=== PATIENT | male | born 1990 | race Caucasian/White ===

== ENCOUNTER 2016-12-19 09:20 | Emergency (ER) | payer OTHER ==
[~2016-12-19 09:20] MED LIST: AMPICILLIN500 MG PO; ATIVAN0.5 M1 PO; ATIVAN1 MG PO; BACO TOP; BACTROBAN2% TP; BUPROPION100 M1 PO; CARCD240 PO; CLONAZEPAM1 MG PO; COL100 PO; COLACE100 MG PO; DILTIAZEM HCL240 MG PO; DILTIAZEM240 M1 PO; FLUOXETINE20 M2 PO; FOL1 PO; FOLIC ACID1 MG PO; GEMFIBROZIL600 MG PO; GOOD NEIGHBOR100 M2 PO; HIB240 TP; HIBICLENS118 ML TOP; KLO0.5 PO; LAC PO; LOP600 PO; MOTRIN800 MG PO; MULTIVITAMINS1 TAB PO; NIFEDICAL XL30 MG PO; NOR10T PO; NORCO1 TA2 PO; OMEPRAZOLE DR20 M1 PO; PRILOSEC20 MG PO; PROZ20 PO; TRAZODONE50 M1 PO; ZOF4
[2016-12-19 10:10] LABS: BASOPHIL % 0.2 % (0-2); PLATELET COUNT 236 x10^3mcL (130-400); RED CELL DISTRIBUTION WIDTH 13.3 % (11.5-14.5)
[2016-12-19 10:13] LABS: CARBON DIOXIDE 24.9 mmol/L (21-32); CHLORIDE SERUM 105 mmol/L (98-107); CREATININE SERUM 1.1 mg/dL (0.7-1.3); GFR1 > 60 mL/min; GLUCOSE SERUM 104 mg/dL (74-106); POTASSIUM SERUM 3.9 mmol/L (3.5-5.1); SODIUM SERUM 141 mmol/L (136-145)
[2016-12-19 10:17] LABS: ALBUMIN 4.3 g/dL (3.4-5.0); ALKALINE PHOSPHATASE 106 U/L (46-116); ALT/SGPT 51 U/L (16-63); AST/SGOT 40 U/L (15-37); BILIRUBIN TOTAL 0.78 mg/dL (0.20-1.00); LIPASE 989 IU/L (73-393); TOTAL PROTEIN, SERUM 7.9 g/dL (6.4-8.2)
[2016-12-19 11:21] VITALS: BP 140/97
== END 2016-12-19 11:21 | disposition home or self-care (01) ==
LOC: ED 09:20
PROVIDERS: Emergency Medicine
DX: K86.1 Other chronic pancreatitis (principal); F10.20 Alcohol dependence, uncomplicated; R03.0 Elevated blood-pressure reading, without diagnosis of hypertension; Z88.8 Allergy status to other drugs, medicaments and biological substances
CPT/HCPCS: J1885; J2765

== ENCOUNTER 2016-12-20 03:39 | Inpatient (IN) | payer OTHER ==
[~2016-12-20] VITALS: Ht 180.3 cm; Wt 96.2 kg
[2016-12-20 04:46] LABS: BASOPHIL % 0.3 % (0-2); PLATELET COUNT 267 x10^3mcL (130-400); RED CELL DISTRIBUTION WIDTH 13.4 % (11.5-14.5)
[2016-12-20 05:28] LABS: AMPHETAMINE QUAL UR NONE DETECTED (NEG <=1000)
[2016-12-20 05:41] LABS: GLUCOSE SERUM 107 mg/dL (74-106); POTASSIUM SERUM 3.8 mmol/L (3.5-5.1)
[2016-12-20 05:43] LABS: CALCIUM 9.2 mg/dL (8.5-10.1); CARBON DIOXIDE 20.4 mmol/L (21-32); CHLORIDE SERUM 105 mmol/L (98-107); CREATININE SERUM 1.2 mg/dL (0.7-1.3); GFR1 > 60 mL/min; SODIUM SERUM 142 mmol/L (136-145)
[2016-12-20 05:49] LABS: ALBUMIN 4.4 g/dL (3.4-5.0); ALKALINE PHOSPHATASE 104 U/L (46-116); ALT/SGPT 31 U/L (16-63); AST/SGOT 27 U/L (15-37); BILIRUBIN TOTAL 0.89 mg/dL (0.20-1.00); TOTAL PROTEIN, SERUM 8.1 g/dL (6.4-8.2)
[2016-12-20 05:50] LABS: AMYLASE 394 U/L (25-115)
[2016-12-20 05:51] LABS: LIPASE 3549 IU/L (73-393)
[2016-12-20 08:37] LABS: CHOLESTEROL/HDL RATIO 5.2
[2016-12-20 08:41] VITALS: BP 167/105
[2016-12-20 08:42] LABS: FREE T4 0.94 ng/dL (0.76-1.46); FREE THYROXINE INDEX 2.6 ug/dL (1.4-4.5); T4(THYROXINE) 7.3 ug/dL (4.7-13.3)
[2016-12-20 09:21] LABS: T3 TOTAL 1.05 ng/mL
[2016-12-20 14:00] VITALS: BP 145/101
[2016-12-20 14:21] LABS: microscopic required? YES; urine erythrocyte NEGATIVE (NEGATIVE)
[2016-12-20 16:49] VITALS: BP 133/78
[2016-12-20 21:31] VITALS: BP 148/94
[2016-12-21 05:48] VITALS: BP 125/84
[2016-12-21 08:47] VITALS: BP 142/84
[2016-12-21 09:14] LABS: BASOPHIL % 0.5 % (0-2); PLATELET COUNT 225 x10^3mcL (130-400); RED CELL DISTRIBUTION WIDTH 13.7 % (11.5-14.5)
[2016-12-21 09:29] LABS: CARBON DIOXIDE 22.6 mmol/L (21-32); CHLORIDE SERUM 111 mmol/L (98-107); GFR1 > 60 mL/min; GLUCOSE SERUM 63 mg/dL (74-106); POTASSIUM SERUM 4.3 mmol/L (3.5-5.1); SODIUM SERUM 142 mmol/L (136-145)
[2016-12-21 12:49] VITALS: BP 112/79; BP 135/85
[2016-12-21 16:34] VITALS: BP 151/96
[2016-12-21 21:01] VITALS: BP 132/88
[2016-12-22 05:21] VITALS: BP 134/84
[2016-12-22 06:21] LABS: BASOPHIL % 0.3 % (0-2); PLATELET COUNT 208 x10^3mcL (130-400); RED CELL DISTRIBUTION WIDTH 13.4 % (11.5-14.5)
[2016-12-22 07:02] LABS: CALCIUM 8.6 mg/dL (8.5-10.1); CARBON DIOXIDE 21.1 mmol/L (21-32); CHLORIDE SERUM 107 mmol/L (98-107); GFR1 > 60 mL/min; POTASSIUM SERUM 4.2 mmol/L (3.5-5.1); SODIUM SERUM 141 mmol/L (136-145)
[2016-12-22 07:06] LABS: GLUCOSE SERUM 57 mg/dL (74-106)
[2016-12-22 09:35] VITALS: BP 130/83
[2016-12-22 18:45] VITALS: BP 139/97
[2016-12-22 21:20] VITALS: BP 136/91
[2016-12-23 05:12] VITALS: BP 116/78
[2016-12-23 06:19] LABS: BASOPHIL % 0.8 % (0-2); PLATELET COUNT 216 x10^3mcL (130-400); RED CELL DISTRIBUTION WIDTH 13.3 % (11.5-14.5)
[2016-12-23 06:21] LABS: CALCIUM 8.6 mg/dL (8.5-10.1); CARBON DIOXIDE 25.7 mmol/L (21-32); CHLORIDE SERUM 108 mmol/L (98-107); GFR1 > 60 mL/min; GLUCOSE SERUM 77 mg/dL (74-106); POTASSIUM SERUM 3.7 mmol/L (3.5-5.1); SODIUM SERUM 142 mmol/L (136-145)
[2016-12-23 09:53] VITALS: BP 144/92
[2016-12-23] MEDS ORDERED: ZOF4 PO (10:21)
[2016-12-23] MEDS ORDERED: FENOFIBRATE145 M1 PO (10:21)
[2016-12-23 11:12] VITALS: BP 144/92
[2016-12-23] MEDS ORDERED: MOT600 PO (11:43)
== END 2016-12-23 11:55 | disposition home or self-care (01) | DRG 282 ==
LOC: ED 03:39 → MU 06:50 → DU 06:50 → MU 12-21 05:15
PROVIDERS: Emergency Medicine; Family Medicine; ADMIT Family Medicine
DX: K85.90 Acute pancreatitis without necrosis or infection, unspecified (principal); N17.0 Acute kidney failure with tubular necrosis; F12.10 Cannabis abuse, uncomplicated; J45.909 Unspecified asthma, uncomplicated; F41.8 Other specified anxiety disorders; I10 Essential (primary) hypertension; F43.0 Acute stress reaction; F32.9 Major depressive disorder, single episode, unspecified; E78.00 Pure hypercholesterolemia, unspecified; I25.2 Old myocardial infarction; Z68.29 Body mass index [BMI] 29.0-29.9, adult; Z87.891 Personal history of nicotine dependence; Z88.8 Allergy status to other drugs, medicaments and biological substances
CPT/HCPCS: 80307; 83880; 84439; G0480; J2270; J2405; J3010; J3490; J7030; Q0092

== ENCOUNTER 2017-07-28 04:00 | Emergency (ER) | payer OTHER ==
[~2017-07-28] VITALS: Ht 180.3 cm; Wt 93.9 kg
[~2017-07-28 04:00] MED LIST changes: +FENOFIBRATE145 M1 PO; +MOT600 PO; +ZOF4 PO
[2017-07-28 05:00] VITALS: BP 141/85
== END 2017-07-28 05:00 | disposition home or self-care (01) ==
LOC: ED 04:00
DX: B00.1 Herpesviral vesicular dermatitis (principal); I25.2 Old myocardial infarction; Z88.8 Allergy status to other drugs, medicaments and biological substances

== ENCOUNTER 2017-09-20 21:02 | Emergency (ER) | payer OTHER ==
[~2017-09-20] VITALS: Ht 180.3 cm; Wt 92.5 kg
[2017-09-20 21:05] VITALS: Ht 180.3 cm; Wt 92.5 kg
[2017-09-20 23:22] VITALS: BP 132/75
== END 2017-09-20 23:22 | disposition home or self-care (01) ==
LOC: ED 21:02
DX: S81.812A Laceration without foreign body, left lower leg, initial encounter (principal); L03.116 Cellulitis of left lower limb; X58.XXXA Exposure to other specified factors, initial encounter; Y93.89 Activity, other specified; Y92.89 Other specified places as the place of occurrence of the external cause; Y99.8 Other external cause status
CPT/HCPCS: 90715

== ENCOUNTER 2017-09-24 19:42 | Emergency (ER) | payer OTHER ==
[~2017-09-24] VITALS: Ht 172.7 cm; Wt 93.4 kg
[2017-09-24 19:52] VITALS: Ht 172.7 cm; Wt 93.4 kg
[2017-09-24 21:15] LABS: BASOPHIL % 0.4 % (0-2); PLATELET COUNT 229 x10^3mcL (130-400); RED CELL DISTRIBUTION WIDTH 13.7 % (11.5-14.5)
[2017-09-24 21:20] LABS: CARBON DIOXIDE 27.1 mmol/L (21-32); CHLORIDE SERUM 103 mmol/L (98-107); CREATININE SERUM 1.2 mg/dL (0.7-1.3); GFR1 > 60 mL/min; GLUCOSE SERUM 129 mg/dL (74-106); POTASSIUM SERUM 4.1 mmol/L (3.5-5.1); SODIUM SERUM 137 mmol/L (136-145)
[2017-09-24 21:24] LABS: ALKALINE PHOSPHATASE 92 U/L (46-116); ALT/SGPT 52 U/L (16-63); AST/SGOT 25 U/L (15-37); BILIRUBIN TOTAL 0.17 mg/dL (0.20-1.00); TOTAL PROTEIN, SERUM 7.8 g/dL (6.4-8.2)
[2017-09-24 22:26] VITALS: BP 140/96
== END 2017-09-24 22:26 | disposition home or self-care (01) ==
LOC: ED 19:42
PROVIDERS: Emergency Medicine
DX: R07.9 Chest pain, unspecified (principal); I10 Essential (primary) hypertension; J45.909 Unspecified asthma, uncomplicated; Z88.1 Allergy status to other antibiotic agents
CPT/HCPCS: 36415; 83880; 85378

== ENCOUNTER 2017-10-21 04:23 | Inpatient (IN) | payer OTHER ==
[~2017-10-21] VITALS: Ht 172.7 cm; Wt 93.9 kg
[2017-10-21 04:33] VITALS: Ht 172.7 cm; Wt 93.9 kg
[2017-10-21 05:12] LABS: BASOPHIL % 0.4 % (0-2); PLATELET COUNT 200 x10^3mcL (130-400); RED CELL DISTRIBUTION WIDTH 13.5 % (11.5-14.5)
[2017-10-21 05:20] LABS: CALCIUM 8.8 mg/dL (8.5-10.1); CARBON DIOXIDE 26.9 mmol/L (21-32); CHLORIDE SERUM 102 mmol/L (98-107); CREATININE SERUM 1.2 mg/dL (0.7-1.3); GFR1 > 60 mL/min; GLUCOSE SERUM 92 mg/dL (74-106); POTASSIUM SERUM 4.3 mmol/L (3.5-5.1); SODIUM SERUM 136 mmol/L (136-145)
[2017-10-21 05:24] LABS: ALBUMIN 3.8 g/dL (3.4-5.0); ALKALINE PHOSPHATASE 78 U/L (46-116); ALT/SGPT 52 U/L (16-63); AST/SGOT 36 U/L (15-37); BILIRUBIN TOTAL 0.6 mg/dL (0.20-1.00); LIPASE 170 IU/L (73-393); TOTAL PROTEIN, SERUM 7.2 g/dL (6.4-8.2)
[2017-10-21 10:14] LABS: microscopic required? NO
[2017-10-21 10:31] LABS: urine erythrocyte NEGATIVE (NEGATIVE)
[2017-10-21 10:40] LABS: AMPHETAMINE QUAL UR NONE DETECTED (NEG <=1000)
[2017-10-21 11:36] VITALS: BP 130/93
[2017-10-21 11:52] LABS: MAGNESIUM 2.2 mg/dL (1.8-2.4); PHOSPHOROUS 2.9 mg/dL (2.5-4.9)
[2017-10-21 12:48] LABS: FREE T4 0.93 ng/dL (0.76-1.46); FREE THYROXINE INDEX 2.4 ug/dL (1.4-4.5); T4(THYROXINE) 6.2 ug/dL (4.7-13.3)
[2017-10-21 13:07] LABS: T3 TOTAL 1.1 ng/mL
[2017-10-21 13:52] VITALS: BP 122/80
[2017-10-21] MEDS ORDERED: PRAVASTATIN SOD20 M1 PO (16:44)
[2017-10-21 17:10] LABS: CHOLESTEROL/HDL RATIO 5.4
[2017-10-21 17:22] VITALS: BP 119/79
[2017-10-21 20:40] VITALS: BP 111/62
[2017-10-22 05:24] VITALS: BP 105/63
[2017-10-22 06:05] LABS: BASOPHIL % 0.8 % (0-2); PLATELET COUNT 186 x10^3mcL (130-400); RED CELL DISTRIBUTION WIDTH 13.9 % (11.5-14.5)
[2017-10-22 06:08] LABS: CALCIUM 8.2 mg/dL (8.5-10.1); CARBON DIOXIDE 23.3 mmol/L (21-32); CHLORIDE SERUM 106 mmol/L (98-107); GFR1 > 60 mL/min; GLUCOSE SERUM 72 mg/dL (74-106); POTASSIUM SERUM 4.1 mmol/L (3.5-5.1); SODIUM SERUM 138 mmol/L (136-145)
[2017-10-22 08:51] VITALS: BP 121/81
[2017-10-22 17:23] VITALS: BP 126/82
[2017-10-22 18:43] VITALS: BP 121/78
[2017-10-22 20:21] VITALS: BP 120/74
[2017-10-23 04:58] VITALS: BP 98/59
[2017-10-23 08:26] VITALS: BP 135/78
[2017-10-23 15:40] VITALS: BP 132/83
[2017-10-23 20:26] VITALS: BP 127/88
[2017-10-24 04:55] VITALS: BP 118/69
[2017-10-24 06:23] LABS: CALCIUM 8.8 mg/dL (8.5-10.1); CARBON DIOXIDE 25.5 mmol/L (21-32); CHLORIDE SERUM 106 mmol/L (98-107); CREATININE SERUM 1.1 mg/dL (0.7-1.3); GFR1 > 60 mL/min; GLUCOSE SERUM 75 mg/dL (74-106); POTASSIUM SERUM 4.2 mmol/L (3.5-5.1); SODIUM SERUM 139 mmol/L (136-145)
[2017-10-24] MEDS ORDERED: PRI20 PO (07:45)
[2017-10-24 08:56] VITALS: BP 138/94
[2017-10-24 09:23] VITALS: BP 138/94
== END 2017-10-24 10:24 | disposition home or self-care (01) | DRG 282 ==
LOC: ED 04:23 → DU 09:38 → MU 09:38 → DU 10:28 → MU 10-22 07:52
PROVIDERS: Emergency Medicine; Family Medicine
DX: K85.90 Acute pancreatitis without necrosis or infection, unspecified (principal); I10 Essential (primary) hypertension; F10.288 Alcohol dependence with other alcohol-induced disorder; F15.11 Other stimulant abuse, in remission; K86.1 Other chronic pancreatitis; E78.5 Hyperlipidemia, unspecified; I25.2 Old myocardial infarction; Z87.891 Personal history of nicotine dependence; Z68.31 Body mass index [BMI] 31.0-31.9, adult; Z88.5 Allergy status to narcotic agent; Z91.14 Patient's other noncompliance with medication regimen
CPT/HCPCS: 84439; G0480; J1885; J7030; Q0092; Q0162

== ENCOUNTER 2018-01-08 19:02 | Emergency (ER) | payer OTHER ==
[~2018-01-08] VITALS: Ht 180.3 cm; Wt 89.1 kg
[~2018-01-08 19:02] MED LIST changes: +PRAVASTATIN SOD20 M1 PO; +PRI20 PO
[2018-01-08 19:07] VITALS: Ht 180.3 cm; Wt 89.1 kg
[2018-01-08 20:56] VITALS: BP 139/74
== END 2018-01-08 20:56 | disposition home or self-care (01) ==
LOC: ED 19:02
DX: M54.5 Low back pain (principal); J45.909 Unspecified asthma, uncomplicated; I10 Essential (primary) hypertension; E78.00 Pure hypercholesterolemia, unspecified; Z88.8 Allergy status to other drugs, medicaments and biological substances
CPT/HCPCS: J1885

== ENCOUNTER 2018-11-24 13:16 | Emergency (ER) | payer OTHER ==
[~2018-11-24] VITALS: Ht 180.3 cm; Wt 97.5 kg
[2018-11-24 13:31] VITALS: Ht 180.3 cm; Wt 97.5 kg
[2018-11-24 14:21] LABS: BASOPHIL % 0.3 % (0-2); PLATELET COUNT 230 x10^3mcL (130-400)
[2018-11-24 14:28] LABS: CARBON DIOXIDE 27.7 mmol/L (21-32); CHLORIDE SERUM 100 mmol/L (98-107); CREATININE SERUM 1.1 mg/dL (0.7-1.3); GFR1 > 60 mL/min; GLUCOSE SERUM 102 mg/dL (74-106); POTASSIUM SERUM 3.8 mmol/L (3.5-5.1); SODIUM SERUM 135 mmol/L (136-145)
[2018-11-24 14:32] LABS: ALBUMIN 4.2 g/dL (3.4-5.0); ALKALINE PHOSPHATASE 120 U/L (46-116); ALT/SGPT 51 U/L (16-63); AMYLASE 97 U/L (25-115); AST/SGOT 32 U/L (15-37); BILIRUBIN TOTAL 0.5 mg/dL (0.20-1.00); LIPASE 725 IU/L (73-393)
[2018-11-24 15:58] VITALS: BP 147/95
== END 2018-11-24 15:58 | disposition home or self-care (01) ==
LOC: ED 13:16
PROVIDERS: Emergency Medicine
DX: K29.20 Alcoholic gastritis without bleeding (principal); I10 Essential (primary) hypertension; F41.9 Anxiety disorder, unspecified; F10.10 Alcohol abuse, uncomplicated; E78.00 Pure hypercholesterolemia, unspecified; Z88.1 Allergy status to other antibiotic agents
CPT/HCPCS: J1885

== ENCOUNTER 2018-12-19 11:33 | Inpatient (IN) | payer OTHER ==
[~2018-12-19] VITALS: Ht 172.7 cm; Wt 96.6 kg
--- NOTE | 2018-12-19 12:15 | NUR ---
PT PRESENTS TO ED WITH C/O OF ABDOMINAL PAIN. PT REPORTS ACUTE ONSET OF PAIN BEGINNING THIS MORNING. PT STS HE HAS HX OF PANCREATITIS AND WAS DRINKING YESTERDAY AND THE DAY BEFORE. PT STS PAIN IS LOCATED AROUND UMBILICUS AREA AND DOES NOT RADIATE. PT STS HE HAS BEEN VOMITING ALL MORNIN AND HAS BEEN UNABLE TO EAT OR DRINK TODAY. PT SIDE-LAYING ON GURNEY, AAOX4, RESP E/U, ON MONITOR, NO ACUTE DISTRESS NOTED AT THIS TIME. WILL CONTINUE TO MONITOR.
[2018-12-19 13:15] LABS: BASOPHIL % 0.4 % (0-2); PLATELET COUNT 220 x10^3mcL (130-400); RED CELL DISTRIBUTION WIDTH 13.4 % (11.5-14.5)
[2018-12-19 13:19] LABS: CALCIUM 9.4 mg/dL (8.5-10.1); CHLORIDE SERUM 98 mmol/L (98-107); CREATININE SERUM 1.1 mg/dL (0.7-1.3); GFR1 > 60 mL/min; GLUCOSE SERUM 148 mg/dL (74-106); POTASSIUM SERUM 3.9 mmol/L (3.5-5.1); SODIUM SERUM 134 mmol/L (136-145)
[2018-12-19 13:24] LABS: ALBUMIN 4.3 g/dL (3.4-5.0); ALKALINE PHOSPHATASE 119 U/L (46-116); ALT/SGPT 50 U/L (16-63); AST/SGOT 27 U/L (15-37); BILIRUBIN TOTAL 0.5 mg/dL (0.20-1.00); LIPASE 1859 IU/L (73-393); TOTAL PROTEIN, SERUM 8.1 g/dL (6.4-8.2)
--- NOTE | 2018-12-19 14:20 | NUR ---
PT C/O PAIN, NOTIFIED. PT LAYING ON SIDE REFUSING TO STAY ON BACK TO GET ACCURATE BP READING.
--- NOTE | 2018-12-19 14:57 | NUR ---
REPORT GIVEN TO GREY LIPSCOMB ON MED/SURG FLOOR TO ASSUME CARE OF PT
--- NOTE | 2018-12-19 15:25 | NUR ---
RECEIVED PT FROM ED VIA WHEELCHAIR, CAME IN DUE TO ABDOMINAL PAIN, NAUSEA AND VOMITING. AAOX4. DENIES HEADACHE/DIZZINESS. ABLE TO FOLLOW COMMANDS. NO SOB NOTED, LUNG SOUNDS CTA. DENIES CHEST PAIN/PRESSURE, SR ON THE MONITOR. C/O 10/10 ABDOMINAL PAIN, NAUSEA AND VOMITING. LAST BM=12/18/18. ABDOMEN IS SOFT. VOIDS. IV SITE ON THE LAC IS PATENT AND INTACT. SIDE RAILS UPX2. CALL LIGHT ON REACH. PRIMARY NURSE BRENDAN AT BEDSIDE FOR CONTINUITY OF CARE
[2018-12-19 15:26] LABS: AMYLASE 167 U/L (25-115); MAGNESIUM 1.6 mg/dL (1.8-2.4); PHOSPHOROUS 2.2 mg/dL (2.5-4.9)
[2018-12-19 15:27] LABS: CHOLESTEROL 224 mg/dL (<200); CHOLESTEROL/HDL RATIO 9.7; HDL CHOLESTEROL 23 mg/dL (40-60); TRIGLYCERIDES 1256 mg/dL (<150)
[2018-12-19 15:32] VITALS: BP 169/123
[2018-12-19 15:36] VITALS: Ht 172.7 cm; Wt 96.6 kg
[2018-12-19 15:58] VITALS: BP 125/87
--- NOTE | 2018-12-19 17:27 | NUR ---
PT IS LAYING DOWN IN LATERAL POSITION. PT LOOKS TO BE IN NO ACUTE DISTRESS AT THIS TIME. PT STATES STARTING TO FEEL PAIN AGAIN BUT STATES IT IS TOLERABLE AT THIS TIME AND CAN WAIT UNTIL NEXT PAIN MEDICATION IS DUE. IV SITE PATENT WITH NO SIGNS OF ERYTHEMA OR SWELLING WITH IV FLUIDS INFUSING. BED IN LOWEST POSITION. EMESIS BAG AT BEDSIDE, PT DENIES FEELING NAUSEATED AT THIS TIME. CALL LIGHT WITHIN REACH. WILL CONTINUE TO MONITOR.
--- NOTE | 2018-12-19 18:45 | NUR ---
PT IS LAYING DOWN IN BED IN LATERAL POSITION. MEDICATED PT ACCORDING TO EMAR FOR PAIN 03/26 OF THE ABD. RESPIRATIONS EVEN AND UNLABORED ON ROOM AIR. IV SITE PATENT WITH NO SIGNS OF ERYTHEMA OR SWELLING, IV FLUIDS INFUSING. BED IN LOWEST POSITION. CALL LIGHT WITHIN REACH. WILL CONTINUE TO MONITOR.
--- NOTE | 2018-12-19 19:10 | NUR ---
EYES CLOSED, EASILY AWAKENED. DROWSY. ORIENTED TO NAME, PLACE, TIME AND SITUATION. SPEECH CLEAR AND APPROPRIATE. BREATHING EVEN AND UNLABORED ON ROOM AIR. NPO. IVF OF NS INFUSING WELL AT 200ML/HR.
[2018-12-19 19:48] VITALS: BP 146/108
--- NOTE | 2018-12-19 21:33 | NUR ---
INFORMED DR. MONTERO PT UNABLE TO TAKE LIBRIUM PO DUE TO HAVING NAUSEA.
--- NOTE | 2018-12-19 21:40 | NUR ---
URINE SPECIMEN SENT TO LAB
[2018-12-19 21:46] LABS: microscopic required? NO
[2018-12-19 21:53] LABS: UA SPECIFIC GRAVITY 1.015 (1.005-1.035); urine erythrocyte NEGATIVE (NEGATIVE)
--- NOTE | 2018-12-19 21:59 | NUR ---
NO NAUSEA AT THIS TIME. SOMEWHAT AGITATED AND ANXIOUS. ATIVAN 2MG ADMINISTERED SLOW IVP PER PRN ORDER.
[2018-12-19 22:00] LABS: AMPHETAMINE QUAL UR NONE DETECTED (See below)
--- NOTE | 2018-12-19 22:26 | NUR ---
EYES CLOSED, CALM. BREATHING EVEN AND UNLABORED. RR 17/MIN. HOB KEPT ELEVATED 30 DEG. CALL LIGHT WITHIN EASY REACH. NO MOANING OR OTHER OBJECTIVE SIGNS OF PAIN NOTED. UPPER SIDE RAILS KEPT RAISED, BED IN LOWEST POSITION.
--- NOTE | 2018-12-20 02:06 | NUR ---
EYES CLOSED, BREATHING UNLABORED. CALL LIGHT WITHIN EASY REACH. HOB KEPT ELEVATED 30 DEG.
[2018-12-20 04:29] VITALS: BP 148/107
[2018-12-20 06:31] LABS: CALCIUM 8.2 mg/dL (8.5-10.1); CARBON DIOXIDE 22.3 mmol/L (21-32); CHLORIDE SERUM 101 mmol/L (98-107); GFR1 > 60 mL/min; GLUCOSE SERUM 179 mg/dL (74-106); MAGNESIUM 1.4 mg/dL (1.8-2.4); PHOSPHOROUS 2.9 mg/dL (2.5-4.9); POTASSIUM SERUM 3.8 mmol/L (3.5-5.1); SODIUM SERUM 134 mmol/L (136-145)
--- NOTE | 2018-12-20 06:31 | NUR ---
EYES CLOSED, BREATHING UNLABORED. HOB KEPT ELEVATED 30 DEG. SINUS RHYTHM ON TELE. IVF INFUSING WELL. IV SITE FREE FROM ERYTHEMA OR SWELLING. CALL LIGHT WITHIN EASY REACH.
[2018-12-20 06:41] LABS: AMYLASE 342 U/L (25-115); LIPASE 2431 IU/L (73-393)
[2018-12-20 06:53] LABS: BASOPHIL % 0.3 % (0-2); PLATELET COUNT 227 x10^3mcL (130-400); RED CELL DISTRIBUTION WIDTH 13.3 % (11.5-14.5)
--- NOTE | 2018-12-20 07:10 | NUR ---
EYES CLOSED, EASILY AWAKENED. IN NO ACUTE DISTRESS. ENDORSED TO NURSE SARAHI
--- NOTE | 2018-12-20 07:15 | NUR ---
AAO X4.C/O RUQ ABD'L PAIN AT 7/[address].LUNGS CLEAR.ON ST ON THE MONITOR.QX=171.IVF NS GOING AT 200 ML/HR INFUSING WELL.ON NPO STATUS FOR PANCREATITIS.CALL LIGHT WITHIN REACH.INSTRUCTED TO CALL FOR ANY PAIN/DISCOMFORT.WILL CONTINUE TO MONITOR.
--- NOTE | 2018-12-20 07:36 | NUR ---
GAVE PT TORADOL 30 MG IVP ORDERED FOR C/O RUQ ABD'L PAIN AT 7/10 PAIN SCALE.WILL CONTINUE TO MONITOR.
--- NOTE | 2018-12-20 08:06 | NUR ---
RECHECKED PAIN LEVEL IS AT 6/10 PAIN SCALE.CLAIMS TO FEEL A LOT BETTER.
[2018-12-20 09:11] VITALS: BP 142/96
[2018-12-20 12:29] VITALS: BP 147/98
--- NOTE | 2018-12-20 13:38 | NUR ---
GAVE PT TORADOL 30 MG IVP FOR C/O RUQ ABD'L PAIN AT 8/10 PAIN SCALE.WILL RECHECK PAIN LEVEL AFTER 30 MINS.
--- NOTE | 2018-12-20 14:08 | NUR ---
WENT TO RECHECK PT'S PAIN LEVEL WENT DOWN TO 4/10 PAIN SACLE.CLAIMS TO FEEL A LOT BETTER.
--- NOTE | 2018-12-20 17:48 | NUR ---
GAVE PT TORADOL 30 MG IVP ORDERED FOR C/O RUQ ABD'L PAIN AT 7/10 PAIN SCALE.
--- NOTE | 2018-12-20 18:30 | NUR ---
WENT TO RECHECK PAIN LEVEL CLAIMS STILL AT 7/10 WILL GIVE MORPHINE ORDERED.
[2018-12-20 18:34] VITALS: BP 123/83
--- NOTE | 2018-12-20 18:44 | NUR ---
GAVE MORPHINE 2 MG IVP ORDERED FOR UNRELIEVED RUQ PAIN.WILL CONTINUE TO MONITOR PT.
--- NOTE | 2018-12-20 19:31 | NUR ---
RECIEVED PATIENT AT START OF SHIFT A/O X4. PATIENT ON TELE MONITOR 3, NSR. DENIES CHEST PAIN. NO SOB NOTED ON RA. LUNGS CTAB. PATIENT REPORTING 6/10 PAIN TO HIS LUQ ABDOMEN. PATIENT LAST MEDICATED 1837. NPO STATUS. IV INFUSING TO LAC WITHOUT ERYTHEMA OR INFILTRATION. BED LOCKED AND IN LOWEST POSITION. CALL LIGHT WITHIN REACH. WILL CONTINUE TO MONITOR.
[2018-12-20 20:07] VITALS: BP 118/79
--- NOTE | 2018-12-20 23:09 | NUR ---
PATIENT GIVEN 2 MG MORPHINE IV PER EMAR FOR 05/26 ABDOMINAL PAIN
--- NOTE | 2018-12-21 | NUR ---
PATIENT GIVEN ATIVAN IV AND TORADOL IV PER EMAR FOR 8/10 ABDOMINAL PAIN AND ANXIETY/ TROUBLE SLEEPING.
--- NOTE | 2018-12-21 04:30 | NUR ---
PATIENT RECIEVED TORADOL IV PER EMAR FOR ABDOMINAL PAIN.
[2018-12-21 05:47] VITALS: BP 106/68
--- NOTE | 2018-12-21 06:00 | NUR ---
PATIENT GIVEN 2 MG MORPHINE IVP PER EMAR FOR PERSISTENT ABDOMINAL PAIN.
[2018-12-21 06:41] LABS: BASOPHIL % 0.2 % (0-2); PLATELET COUNT 164 x10^3mcL (130-400); RED CELL DISTRIBUTION WIDTH 13.3 % (11.5-14.5)
--- NOTE | 2018-12-21 06:47 | NUR ---
PATEINT HAD INTERMIITENT PERIODS OF SLEEP LAST NIGHT. ABDOMINAL PAIN PERSISTS. PATIENT HAS REMAINED NPO EXCEPT MEDS. IV INFUSING WELL. CALL LIGHT WITHIN REACH. WILL ENDORSE CARE TO MORNING NURSE.
[2018-12-21 06:49] LABS: CARBON DIOXIDE 23.4 mmol/L (21-32); CHLORIDE SERUM 106 mmol/L (98-107); CREATININE SERUM 0.8 mg/dL (0.7-1.3); GFR1 > 60 mL/min; GLUCOSE SERUM 90 mg/dL (74-106); MAGNESIUM 1.9 mg/dL (1.8-2.4); PHOSPHOROUS 1.4 mg/dL (2.5-4.9); POTASSIUM SERUM 3.7 mmol/L (3.5-5.1); SODIUM SERUM 138 mmol/L (136-145)
--- NOTE | 2018-12-21 07:15 | NUR ---
AAO X4.NO SIGNS OF PAIN.LUNGS CLEAR.ON SR ON THE MONITOR.IVF NS GOING AT 200 ML/HR INFUSING WELL.CALL LIGHT WITHIN REACH.INSTRUCTED TO CALL FOR ANY PAIN/DISCOMFORT.WILL CONTINUE TO MONITOR PT.
--- NOTE | 2018-12-21 08:51 | NUR ---
GAVE TORADOL 30 MG IVP FOR C/O ABD'L PAIN AT 7/10 PAIN SCALE.WILL REASSESS IN 30 MIN
[2018-12-21 09:12] VITALS: BP 118/75
--- NOTE | 2018-12-21 09:21 | NUR ---
WENT TO RECHECK PAIN LEVEL. PT SLEEPING COMFORTABLY.NO SIGNS OF DISCOMFORT.
--- NOTE | 2018-12-21 11:00 | NUR ---
JARED IRAHETA ABOUT PHOS=1.4 WILL ORDER K PHOS.
[2018-12-21 12:58] VITALS: BP 119/73
--- NOTE | 2018-12-21 13:16 | NUR ---
GAVE PT TORADOL 30 MG IVP FOR C/O ABD'L PAIN AT 6/10 PAIN SCALE.WILL CONTINUE TO MONITOR PT.
--- NOTE | 2018-12-21 13:46 | NUR ---
WENT TO RECHECK PAIN LEVEL CLAIMS PAIN WENT DOWN TO 4/10 PAIN SCALE.CLAIMS TO FEEL A LOT BETTER.
[2018-12-21 18:07] VITALS: BP 107/72
--- NOTE | 2018-12-21 18:15 | NUR ---
GAVE TORADOL 30 MG IVP FOR C/O RUQ ABD'L PAIN AT 6/10 PAIN SCALE.WILL CONTINUE TO MONITOR PT.
--- NOTE | 2018-12-21 18:27 | NUR ---
NO SIGNIFICANT CHANGE NOTED.WILL ENDORSE TO NEXT SHIFT.
--- NOTE | 2018-12-21 19:56 | NUR ---
PATIENT RECEIVED AWAKE, ALERT, ORIENTED X4. RESPIRATION EVEN AND UNLABORED, ON ROOM AIR. ONGOING 0.9% NS AT 200 CC/HR INFUSING WELL AT THE LEFT ANTECUBITAL AREA. DENIES PAIN AT THIS TIME. LBM 12/18/18. VOIDING FREELY WITHOUT DIFFICULTY. AMBULATORY. SKIN DRY AND INTACT. WILL CONTINUE TO MONITOR.
[2018-12-21 20:42] VITALS: BP 126/75
--- NOTE | 2018-12-21 20:55 | NUR ---
PATIENT COMPLAINED OF STABBING ABDOMINAL PAIN, PS 7/10. MEDICATED WITH NORCO 7.5/325 MG PO ORDERED. HE ALSO COMPLAINED OF ANXIETY, ATIVAN 2 MG IVP GIVEN ORDERED. WILL CONTINUE TO MONITOR.
--- NOTE | 2018-12-22 02:49 | NUR ---
PATIENT COMPLAINED OF SHARP EPIGASTRIC ABDOMINAL PAIN, PS 7/10. MEDICATED WITH TORADOL 30 MG IVP ORDERED. WILL CONTINUE TO MONITOR.
[2018-12-22 05:37] VITALS: BP 104/69
--- NOTE | 2018-12-22 05:44 | NUR ---
PATIENT COMPLAINED OF SHARP EPIGASTRIC ABDOMINAL PAIN RADIATING TO THE BACK, PS 7/10. MEDICATED WITH NORCO 7.5/325 MG PO. WILL CONTINUE TO MONITOR.
--- NOTE | 2018-12-22 06:21 | NUR ---
PATIENT RESTING IN BED AT THIS TIME. RESPIRATION EVEN AND UNLABORED, ON ROOM AIR. ONGOING 0.9% NS AT 200 CC/HR INFUSING WELL AT THE LEFT ANTECUBITAL AREA. ON NPO. ASSISTED WITH NEEDS. SAFETY OBSERVED. PLACED BED IN THE LOWEST POSITION. PLACED CALL LIGHT WITHIN REACH AT ALL TIMES.
[2018-12-22 06:52] LABS: BASOPHIL % 0.6 % (0-2); PLATELET COUNT 167 x10^3mcL (130-400); RED CELL DISTRIBUTION WIDTH 13.2 % (11.5-14.5)
[2018-12-22 07:02] LABS: CALCIUM 8.3 mg/dL (8.5-10.1); CARBON DIOXIDE 20.9 mmol/L (21-32); CHLORIDE SERUM 106 mmol/L (98-107); CREATININE SERUM 0.8 mg/dL (0.7-1.3); GFR1 > 60 mL/min; GLUCOSE SERUM 61 mg/dL (74-106); LIPASE 1151 IU/L (73-393); POTASSIUM SERUM 3.5 mmol/L (3.5-5.1); SODIUM SERUM 138 mmol/L (136-145)
[2018-12-22 07:58] VITALS: BP 105/70
--- NOTE | 2018-12-22 10:09 | NUR ---
PER ESEQUIEL COX PATIENT WILL BE DISCHARGED HOME TODAY.
--- NOTE | 2018-12-22 11:24 | NUR ---
PATIENT MADE AWARE OF DISCHARGE PLAN TODAY. TOLERATED TO APPLE JUICE/JELLO WELL. DENIES NAUSEA.
[2018-12-22 11:56] VITALS: BP 124/83
[2018-12-22 12:32] VITALS: BP 124/83
--- NOTE | 2018-12-22 13:39 | NUR ---
DISCHARGE INSTRUCTION GIVEN TO PATIENT WHO IS AWAKE,ALERT, ORIENTED X4. PATIENT VERBALIZED UNDERSTANDING. S/L TO LAC REMOVED NO S/S OF INFECTION, DRSG APPLIED. BROUGHT VIA WHEELCHAIR ACCOMPANIED BY HIS GIRLFRIEND. CONDITION STABLE UPON DISCHARGE.
== END 2018-12-22 13:33 | disposition home or self-care (01) | DRG 282 ==
LOC: ED 11:33 → MU 14:18 → DU 14:18 → MU 12-21 17:14
PROVIDERS: Emergency Medicine; Family Medicine; ADMIT Internal Medicine
DX: K85.20 Alcohol induced acute pancreatitis without necrosis or infection (principal); E78.00 Pure hypercholesterolemia, unspecified; F10.188 Alcohol abuse with other alcohol-induced disorder; J45.909 Unspecified asthma, uncomplicated; F15.10 Other stimulant abuse, uncomplicated; F41.9 Anxiety disorder, unspecified; I10 Essential (primary) hypertension; F17.210 Nicotine dependence, cigarettes, uncomplicated; Y90.0 Blood alcohol level of less than 20 mg/100 ml; I25.2 Old myocardial infarction; Z68.29 Body mass index [BMI] 29.0-29.9, adult; Z88.8 Allergy status to other drugs, medicaments and biological substances
CPT/HCPCS: 83880; G0480; J1885; J2060; J2270; J2405; J3490; J7030

== ENCOUNTER 2019-03-07 06:43 | Emergency (ER) | payer OTHER ==
[~2019-03-07] VITALS: Ht 180.3 cm; Wt 97.1 kg
[2019-03-07 06:49] VITALS: Ht 180.3 cm; Wt 97.1 kg
[2019-03-07 07:51] LABS: BASOPHIL % 0.5 % (0-2); PLATELET COUNT 240 x10^3mcL (130-400); RED CELL DISTRIBUTION WIDTH 13.7 % (11.5-14.5)
[2019-03-07 08:52] LABS: ALBUMIN 3.9 g/dL (3.4-5.0); ALKALINE PHOSPHATASE 104 U/L (46-116); ALT/SGPT 46 U/L (16-63); BILIRUBIN TOTAL 0.4 mg/dL (0.20-1.00); CALCIUM 9.1 mg/dL (8.5-10.1); CARBON DIOXIDE 27.4 mmol/L (21-32); CHLORIDE SERUM 102 mmol/L (98-107); GFR1 > 60 mL/min; LIPASE 245 IU/L (73-393); POTASSIUM SERUM 4.6 mmol/L (3.5-5.1); SODIUM SERUM 138 mmol/L (136-145); TOTAL PROTEIN, SERUM 7.3 g/dL (6.4-8.2)
[2019-03-07 09:04] LABS: GLUCOSE SERUM 125 mg/dL (74-106)
[2019-03-07 09:05] LABS: AST/SGOT 24 U/L (15-37)
[2019-03-07 10:37] VITALS: BP 139/91
[2019-03-08] MEDS ORDERED: NORCO1 TA2 PO (09:21)
== END 2019-03-07 10:37 | disposition home or self-care (01) ==
LOC: ED 06:43
PROVIDERS: Emergency Medicine
DX: K29.20 Alcoholic gastritis without bleeding (principal); I10 Essential (primary) hypertension; J45.909 Unspecified asthma, uncomplicated; F41.9 Anxiety disorder, unspecified; I25.2 Old myocardial infarction; E78.00 Pure hypercholesterolemia, unspecified; Z88.8 Allergy status to other drugs, medicaments and biological substances
CPT/HCPCS: G0480; J2060; J3411

== ENCOUNTER 2019-03-08 04:49 | Inpatient (IN) | payer OTHER ==
[~2019-03-08] VITALS: Ht 172.7 cm; Wt 95.3 kg
[2019-03-08 04:52] VITALS: Ht 172.7 cm; Wt 95.3 kg
--- NOTE | 2019-03-08 04:59 | NUR ---
PT SENT TO LOBBY TO AWAIT ROOM PLACEMENT. PT IN STABLE CONDITION.
--- NOTE | 2019-03-08 05:11 | NUR ---
PT CAME TO ED CO ABD PAIN IN UMBILICAL AREA X2 DAYS. PT STS HE WAS "DRINKING" WHICH ALREADY UPSET HIS STOMACH, THEN HE ATE PIZZA WHICH MADE IT WORSE. BOWEL SOUNDS ARE ACTIVE IN ALL FOUR QUADRANTS. PT STS HE HAD 6 EPISODES OF VOMITING TODAY. PT STS HE FELT WARM YESTERDAY BUT DIDN'T TAKE HIS TEMP. PT STS HE IS UNABLE TO KEEP ANY FOODS OR LIQUIDS DOWN. NO S/S OF DISTRESS. RESP E/U. AWAITING MSE. COMFORT MEASURES IMPLEMENTED. WILL CONTINUE TO MONITOR.
[2019-03-08 06:44] LABS: BASOPHIL % 0.4 % (0-2); PLATELET COUNT 281 x10^3mcL (130-400); RED CELL DISTRIBUTION WIDTH 13.9 % (11.5-14.5)
[2019-03-08 06:45] LABS: CALCIUM 9.1 mg/dL (8.5-10.1); CHLORIDE SERUM 102 mmol/L (98-107); CREATININE SERUM 1.2 mg/dL (0.7-1.3); GFR1 > 60 mL/min; GLUCOSE SERUM 145 mg/dL (74-106); POTASSIUM SERUM 4.2 mmol/L (3.5-5.1); SODIUM SERUM 134 mmol/L (136-145)
[2019-03-08 06:55] LABS: ALBUMIN 3.9 g/dL (3.4-5.0); ALKALINE PHOSPHATASE 111 U/L (46-116); ALT/SGPT 34 U/L (16-63); AST/SGOT 15 U/L (15-37); BILIRUBIN TOTAL 0.69 mg/dL (0.20-1.00); TOTAL PROTEIN, SERUM 7.7 g/dL (6.4-8.2)
[2019-03-08 07:11] LABS: LIPASE 2429 IU/L (73-393)
--- NOTE | 2019-03-08 07:52 | NUR ---
ASSESSMENT PERFORMED AND UPON ASSESSMENT RAC IV INFILTRATED. DC IV HL AND WILL ATTEMPT NEW IV HL
[2019-03-08 07:53] LABS: AMPHETAMINE QUAL UR NONE DETECTED (See below)
--- NOTE | 2019-03-08 09:15 | NUR ---
PT SITTING SEMI FOWLERS WITH PAIN 4/10 AND TOLERABLE AT THIS TIME. VSS AND AWAITING ADMISSION. NO DISTRESS NOTED
[2019-03-08] MEDS ORDERED: NORCO1 TA2 PO (09:21)
--- NOTE | 2019-03-08 11:26 | NUR ---
PT LAYING WITH EYES CLOSED AND EASILY AROUSABLE TO NAME. VSS AND NO DISTRESS NOTED
--- NOTE | 2019-03-08 12:00 | NUR ---
REPORT GIVEN TO SURU ON TELE FLOOR. AWAITING MD ORDERS AT THIS TIME FOR ADMISSION
[2019-03-08 12:33] VITALS: BP 144/101
--- NOTE | 2019-03-08 12:35 | NUR ---
RECEIVED PT FROM ED VIA AMBERLY. ORIENTED PT TO ROOM AND SURRUONDINGS. SZ PRECAUTIONS IN PLACE. IV NOTED TO RAC PATENT AND INTACT. INSTRUCTED PT ON THE USE OF CALL LIGHT FOR ASSISTANCE. WILL CONTINUE TO MONITOR
[2019-03-08 13:11] LABS: CHOLESTEROL 164 mg/dL (<200); MAGNESIUM 2.1 mg/dL (1.8-2.4); PHOSPHOROUS 2.8 mg/dL (2.5-4.9)
[2019-03-08 13:27] LABS: AMYLASE 272 U/L (25-115); CHOLESTEROL/HDL RATIO 5.3; HDL CHOLESTEROL 31 mg/dL (40-60); TRIGLYCERIDES 421 mg/dL (<150)
[2019-03-08 16:22] VITALS: BP 134/98
--- NOTE | 2019-03-08 16:24 | NUR ---
PT IN BED. RESP EQUAL AND UNLABORED, NO ABD DISCOMFORT REPORTED. WILL CONTINUE TO MONITOR
--- NOTE | 2019-03-08 18:38 | NUR ---
PT IN BED. RESP EQUAL AND UNLABORED, MINIMAL ABD DISCOMFORT REPORTED. WILL ENDORSE TO ONCOMING SHIFT
--- NOTE | 2019-03-08 19:00 | NUR ---
RECEIVED REPORT FROM ADRYAN. ASSUMING ALL CARE
--- NOTE | 2019-03-08 19:20 | NUR ---
RECEIVED PT LAYING IN BED. PT IS A/OX4. SPEECH IS CLEAR. ABLE TO MAKE NEEDS KNOWN. GCS=15. DENIES MIRANDA. SEIZURE PRECATION IN PLACE. EENT FREE OF DISHARGE. ORAL MUCOSA PINK AND MOIST. NO JVD NOTED. BREATHING IS E/U ON RA. LUNGS SOUND CLEAR BILAT. SYMMETRICAL CHEST EXPANSION NOTED. PT ON TELE # [address]. S1/2 HEART SOUNDS AUSCULTATED. CHEST WALL EQUAL AND SYMMETRICAL. DENIES ANY CP. PALPABLE PULSES X4 EXTREMITIES. SKIN IS WARM AND DRY. NO EDEMA NOTED. RAC IV IN PLACE WITH NS INFUSING @ 150 ML/HR WITH NO S/S OF INFILTRATION. PT IS AMBULATORY. NO JOINT SWELLING/DEFORITY NOTED. PT IS NPO AT THIS TIME. ABD IS SOFT/ROUND, TENDER TO PALPATION. BOWEL SOUNDS ACTIVE X4 QUADRANTS. PT C/O UPPER QUADRANT SHARP PAIN RATED 7/10. PT VOIDS FREELY VIA URINAL. NO SCROTAL EDEMA NOTED. SKIN IS INTACT. PT ABLE TO REPOSITION SELF INDEPENDENTLY. T IS CALM AND COOPERATIVE. FAMILY AT BEDSIDE. BED IN LOW POSITION. CALL LIGHT IN REACH. WILL CONT TO MONITOR
--- NOTE | 2019-03-08 20:30 | NUR ---
PT C/O 7/10 SHARP UPPER QUADRANT ABD PAIN. PT MEDICATED WITH TORADOL PER EMAR. WILL CONT TO MONITOR.
[2019-03-08 20:37] VITALS: BP 133/94
--- NOTE | 2019-03-08 22:35 | NUR ---
PT IS AWAKE/ALERT. BREATHING IS E/U ON RA. NS INFUSING @ 150 ML/HR WITH NO S/S OF INFILTRATION NOTED. NO S/S OF ACUTE DISTRESS NOTED. FAMILY AT BEDSIDE. BED IN LOW POSITION. CALL LIGHT IN REACH. WILL CONT TO MONITOR
--- NOTE | 2019-03-08 22:45 | NUR ---
PT IS AWAKE/ALERT. BREATHING IS E/U ON 2 L NC. DENIES ANY PAIN AT THIS TIME. FAMILY AT BEDSIDE. BED IN LOW POSITION. CALL LIGHT IN REACH. WILL CONT TO MONITOR.
--- NOTE | 2019-03-09 00:09 | NUR ---
PT C/O FEELING RESTLESS. PT MEDICATED WITH ATIVAN 2 MG IVP PER EMAR. WILL CONT TO MONITOR
--- NOTE | 2019-03-09 03:55 | NUR ---
PT C/O SHARP ABD PAIN RATED 8/10. PT MEDICATED WITH TORADOL PER EMAR. WILL CONT TO MONITOR
--- NOTE | 2019-03-09 05:30 | NUR ---
PT IS SLEEPING, EASILY AROUSABLE. RISE AND FALL OF CHEST SYMMETRIC. BREATHING IS E/U ON RA. NO S/S OF ACUTE DISTRESS NOTED. BED IN LOW POSITION. CALL LIGHT IN REACH. WILL CONT TO MONITOR.
[2019-03-09 05:45] VITALS: BP 129/85
[2019-03-09 06:28] LABS: BASOPHIL % 0.3 % (0-2); PLATELET COUNT 209 x10^3mcL (130-400); RED CELL DISTRIBUTION WIDTH 13.8 % (11.5-14.5)
[2019-03-09 06:46] LABS: CALCIUM 8.6 mg/dL (8.5-10.1); CARBON DIOXIDE 25.3 mmol/L (21-32); CHLORIDE SERUM 110 mmol/L (98-107); GFR1 > 60 mL/min; GLUCOSE SERUM 70 mg/dL (74-106); POTASSIUM SERUM 4.6 mmol/L (3.5-5.1); SODIUM SERUM 142 mmol/L (136-145)
--- NOTE | 2019-03-09 07:00 | NUR ---
REPORT GIVEN TO NICK EDMONDS. ALL QUESTIONS/CONCERNS ADDRESSED AT THIS TIME. ENDORSING ALL CARE
[2019-03-09 07:59] LABS: LACTIC DEHYDROGENASE (LDH) 151 U/L (100-190)
[2019-03-09 08:03] LABS: AMYLASE 246 U/L (25-115)
[2019-03-09 08:59] LABS: LIPASE 2286 IU/L (73-393)
--- NOTE | 2019-03-09 09:39 | NUR ---
PATIENT RECEIVED ALERT AND ORIENTED TIMES FOUR. PATIENT HAS BEEN NPO ORDERED AND THE LIPASE WAS NOTED ELEVATED ON ADMIT. LUNGS ARE CLEAR BOWEL SOUNDS ACTIVE. PATIENT DENIES NAUSEA AT THIS TIME. PULSES PALBLE AND SOME TRACE EDEMA NOTED. 129/85, 18, 64, 97.7, 99%. [id number] TIH AMYLASE 246 AND LIPASE AT 2286. PATINET HAS BEEN WITH AIC AT 5.7, AND HAS TRIGLCERIDES AT 421. PATIENT HAS BEEN GIVEN TORADOL ORDERED AND STATES THIS IS NOT EFFECTIE WHEN RECEIVED IN ER. PATIENT HAS NORCO WELL BUT WITH PAIN TO THE ABDOMEN JUDGEMENT CALLED FOR TORADOL RATHER NORCO. PATIENT WAS ALSO GIVEN LIBRIUM INDICATED WELL. WILL CONTINUE TO MONITOR INDICATED.
[2019-03-09 09:40] VITALS: BP 144/94
--- NOTE | 2019-03-09 11:00 | NUR ---
REQUESTED PAIN MEDICATION FOR PAIN TO THE ABDOMEN. GAVE NORCO ORDERED. PATIENT STATS HE IS TO GET SOMETHING STRONGER. NO ORDERS WERE GIVEN AT THIS TIME. WILL CONTINUE TO MONTIOR FOR THE EFFECTIVENESS OF THE MEDICATION.
[2019-03-09 13:06] VITALS: BP 90/58
[2019-03-09 13:07] VITALS: BP 144/97
--- NOTE | 2019-03-09 13:44 | NUR ---
DOUG HAD RECEIVED NORCO AN HOUR AGON AN DWANTS MORE PAIN MEDICATION. PER THE PATIEN TTHERE WAS TO BE LORDERED SOMETHING STRONGER. NO ORDERS HAVE BEEN RECEIVED.
[2019-03-09 18:18] VITALS: BP 127/77
--- NOTE | 2019-03-09 20:25 | NUR ---
Awake and verbally responsive. No respiratory distress noted on room air. Denies n/v. On and off abd'l.pain, medicated as ordered. Will cont.to monitor. Ambulating at this time.
[2019-03-09 21:00] VITALS: BP 130/84
--- NOTE | 2019-03-10 03:42 | NUR ---
Afebrile. No significant change in condition noted. Medicated as ordered for c/o abd'l.pain and anxiety with relief. Remained NPO. In no apparent distress.
[2019-03-10 05:14] VITALS: BP 111/75
[2019-03-10 06:32] LABS: BASOPHIL % 0.6 % (0-2); PLATELET COUNT 206 x10^3mcL (130-400); RED CELL DISTRIBUTION WIDTH 13.7 % (11.5-14.5)
--- NOTE | 2019-03-10 07:03 | NUR ---
RECEIVED REPORT FROM SHAKIRA EDMONDS. PATIENT SITTING COMFORTABLY IN BED SPEAKING WITH STUDENT DOCTOR. SEIZURE PRECAUTION ARE IN PLACE. TELE # [address]. PT DENIES CHEST PAIN. PT ON ROOM AIR. NO C/O SOB AND NO DISTRESS NOTED. IV TO LAC IS PATENT AND INFUSING NS @ 150 ML/HR. NO REDNESS OR PAIN. ALL QUESTIONS AND CONCERNS ADDRESSED.
--- NOTE | 2019-03-10 08:38 | NUR ---
IN TO SEE PATIENT AND ADMINISTER MEDICATION (SEE eMAR). PT RESTING IN BED ALL OTHER NEEDS MET.
[2019-03-10 09:52] VITALS: BP 130/88
[2019-03-10 11:27] LABS: CALCIUM 8.6 mg/dL (8.5-10.1); CARBON DIOXIDE 22.2 mmol/L (21-32); CHLORIDE SERUM 107 mmol/L (98-107); CREATININE SERUM 0.9 mg/dL (0.7-1.3); GFR1 > 60 mL/min; GLUCOSE SERUM 62 mg/dL (74-106); LIPASE 880 IU/L (73-393); POTASSIUM SERUM 4.4 mmol/L (3.5-5.1); SODIUM SERUM 139 mmol/L (136-145)
--- NOTE | 2019-03-10 11:27 | NUR ---
IN TO SEE PATIENT AND ADMINISTER MEDICATION (SEE eMAR). PT RESTING IN BED ALL OTHER NEEDS MET.
[2019-03-10 12:52] VITALS: BP 127/86
--- NOTE | 2019-03-10 14:22 | NUR ---
IN TO SEE PATIENT AND ADMINISTER MEDICATION (SEE eMAR). PT RESTING IN BED ALL OTHER NEEDS MET.
--- NOTE | 2019-03-10 15:28 | NUR ---
IN TO SEE PATIENT AND ADMINISTER MEDICATION (SEE eMAR). PT RESTING IN BED ALL OTHER NEEDS MET.
[2019-03-10 18:24] VITALS: BP 126/79
--- NOTE | 2019-03-10 18:53 | NUR ---
NO SIGNIFICANT CHANGES THROUGHOUT THE DAY. PATIENT IS RESTING IN BED WITH ALL NEEDS MET. IV TO LAC CONTINUES TO INFUSE NS @ 150 ML/HR. NO REDNESS OR PAIN. PT ON ROOM AIR. NO DISTRESS NOTED. TELE # [address] PT DENIES CHEST PAIN. WILL ENDORSE ALL CARE TO ONCOMING NURSE.
--- NOTE | 2019-03-10 19:49 | NUR ---
Awake and verbally responsive. No respiratory distress noted on room air. Denies n/v. Denies pain at this time. NPO except meds. Will cont.to monitor. Call light within reach.
[2019-03-10 21:47] VITALS: BP 125/85
--- NOTE | 2019-03-11 04:12 | NUR ---
Afebrile. No significant change in condition noted. Remained NPO except meds. Medicated as ordeted for c/o abd'l. pain and anxiety with relief. In no apparent distress.
[2019-03-11 05:32] VITALS: BP 120/77
[2019-03-11 06:47] LABS: BASOPHIL % 0.5 % (0-2); PLATELET COUNT 207 x10^3mcL (130-400); RED CELL DISTRIBUTION WIDTH 14.1 % (11.5-14.5)
[2019-03-11 07:18] LABS: AMYLASE 73 U/L (25-115); CALCIUM 8.7 mg/dL (8.5-10.1); CARBON DIOXIDE 21.6 mmol/L (21-32); CHLORIDE SERUM 106 mmol/L (98-107); CREATININE SERUM 0.8 mg/dL (0.7-1.3); GFR1 > 60 mL/min; LIPASE 634 IU/L (73-393); POTASSIUM SERUM 3.8 mmol/L (3.5-5.1); SODIUM SERUM 140 mmol/L (136-145)
[2019-03-11 07:25] LABS: GLUCOSE SERUM 56 mg/dL (74-106)
--- NOTE | 2019-03-11 07:43 | NUR ---
HANDOFF REPORT RECEIVED. PATIENT ASLEEP. CRITICAL RESULT FROM LAB FOR GLUCOSE 56. ACCU CHECK DONE 2X : 54/58. PATIENT AWAKE AND NOT IN ANY DISTRESS. [employer] ATTENDANT ENMA MADE AWARE. 120 ML ORANGE JUICE GIVEN PO.
[2019-03-11 08:14] VITALS: BP 138/89
--- NOTE | 2019-03-11 09:58 | NUR ---
COMPLAINED OF 4/10 ABDOMINAL/BACK PAIN. TORADOL GIVEN ORDERED.
[2019-03-11 11:57] VITALS: BP 131/89
--- NOTE | 2019-03-11 12:00 | NUR ---
ADVACED TP CLEAR LIQUID DIET. DENIES NAUSEA.
[2019-03-11 13:51] VITALS: BP 92/54
--- NOTE | 2019-03-11 14:00 | NUR ---
TAKING A NAP AFTER FAMILY MEMBERS PAID A VISIT. CALL ELLIS WITHIN REACH.
[2019-03-11 16:48] VITALS: BP 128/85
--- NOTE | 2019-03-11 17:32 | NUR ---
AMBULATING IN THE HALLWAY. GAIT STEADY.
--- NOTE | 2019-03-11 19:22 | NUR ---
HANDOFF REPORT TO GREY CONNELL DONE.
--- NOTE | 2019-03-11 19:37 | NUR ---
RECEIVED PT FROM DAY SHIFT RN. PT AAOX4. DENIES HEADACHE OR DIZZINESS. PT BREATHING EVEN AND UNLABORED ON RA, WITH NO SOB NOTED. TELE #17. PT DENIES CHEST PAIN OR PRESSURE. ABD SOFT/ROUND, ACTIVE BOWEL SOUNDS. DENIES ABD PAIN/N/V. PT AMBULATORY. IV LAC PATENT. NO SIGNS OF ACUTE DISTRESS NOTED. CALL BUTTON WITHIN REACH. SAFETY PRECAUTIONS IN PLACE. WILL CONTINUE TO MONITOR.
--- NOTE | 2019-03-11 21:19 | NUR ---
PT REPORTED FEELING ANXIOUS. MEDICATED PER EMAR. CALL BUTTON WITHIN REACH. SAFETY PRECAUTIONS IN PLACE. WILL MONITOR.
[2019-03-11 22:20] VITALS: BP 137/93
--- NOTE | 2019-03-11 23:25 | NUR ---
PT REPORTED BACK PAIN. MEDICATED PER EMAR. CALL BUTTON WITHIN REACH. SAFETY PRECAUTIONS IN PLACE. WILL MONITOR.
--- NOTE | 2019-03-12 00:28 | NUR ---
PT REPORTED HAVING BACK/ABD PAIN. MEDICATED PER EMAR. CALL BUTTON WITHIN REACH. SAFETY PRECAUTIONS IN PLACE. WILL MONITOR.
--- NOTE | 2019-03-12 01:46 | NUR ---
PT RESTING. BREATHING EVEN AND UNLABORED. NO SIGNS OF DISTRESS. CALL BUTTON WITHIN REACH. SAFETY PRECAUTIONS IN PLACE. WILL CONTINUE TO MONITOR.
--- NOTE | 2019-03-12 04:18 | NUR ---
PT RESTING. BREATHING EVEN AND UNLABORED. NO SIGNS OF DISTRESS. CALL BUTTON WITHIN REACH. SAFETY PRECAUTIONS IN PLACE. WILL CONTINUE TO MONITOR.
[2019-03-12 05:57] VITALS: BP 117/85
--- NOTE | 2019-03-12 06:22 | NUR ---
PT SLEPT ON AND OFF THROUGHOUT THE NIGHT WITH NO SIGNS OF DISTRESS. PT REPORTED BACK/ABD PAIN, MEDICATED PER EMAR WITH RELIEF. IV PATENT AND INFUSSING WELL. PT AMBULATORY WITH BRP. MEDICATED PER EMAR. NO SIGNS OF ACUTE DISTRESS. CALL BUTTON WITHIN REACH. SAFETY PRECAUTIONS IN PLACE. WILL CONTINUE TO MONITOR AND ENDORSE CARE TO DAY SHIFT RN.
[2019-03-12 06:40] LABS: BASOPHIL % 0.9 % (0-2); PLATELET COUNT 242 x10^3mcL (130-400); RED CELL DISTRIBUTION WIDTH 13.9 % (11.5-14.5)
[2019-03-12 06:53] LABS: CALCIUM 9.1 mg/dL (8.5-10.1); CARBON DIOXIDE 25.2 mmol/L (21-32); CHLORIDE SERUM 106 mmol/L (98-107); CREATININE SERUM 0.9 mg/dL (0.7-1.3); GFR1 > 60 mL/min; GLUCOSE SERUM 117 mg/dL (74-106); POTASSIUM SERUM 3.8 mmol/L (3.5-5.1); SODIUM SERUM 141 mmol/L (136-145)
--- NOTE | 2019-03-12 06:54 | NUR ---
PT REPORTED BACK PAIN. MEDICATED PER EMAR. CALL BUTTON WITHIN REACH. SAFETY PRECAUTIONS IN PLACE. WILL MONITOR.
--- NOTE | 2019-03-12 07:19 | NUR ---
HANDOFF REPORT RECEIVED. PATIENT AWAKE AND ON PHONE. NOT IN ANY DISTRESS. D5NS AT 100CC/HER INFUSING TO LFA. CALL ELLIS WITHIN REACH.
--- NOTE | 2019-03-12 07:26 | NUR ---
NO SIGNS OF DISTRESS NOTED. ENDORSED CARE TO DAY SHIFT RN, ALL QUESTIONS ADDRESSED.
--- NOTE | 2019-03-12 08:49 | NUR ---
LPN RN HOSPICE ENMA ASSESSING PATIENT.
[2019-03-12 09:09] VITALS: BP 142/90
--- NOTE | 2019-03-12 09:20 | NUR ---
AMBULATED 3 LAPS. WELL TOLERATED.
--- NOTE | 2019-03-12 10:41 | NUR ---
CALLED BY INSTRUCTOR TAP DANCING FOR VT/VF ON TELEMETRY. PATIENT SEEN STAT AND WAS IN THE BATHROOM BRUSHING TEETH. DENIES ANY CHEST PAINS/DIZZINESS. BP 131/90 HR 70. LEAD PATCHES CHANGED. NOW NSR.
--- NOTE | 2019-03-12 11:37 | NUR ---
AMBULATING. NOTED LOW ENERGY. STATED " I AM FEELING DEPRESSED COZ I THOUGHT I AM GOING HOME TODAY..." "I WILL LET YOU KNOW IF I NEED PAIN MEDICINE". CALL ELLIS WITHIN REACH.
[2019-03-12 13:26] VITALS: BP 143/92
--- NOTE | 2019-03-12 16:08 | NUR ---
STATED " I WANT TO GO BACK TO CLEAR LIQUID INSTEAD OF FULL LIQUID. I THINK IT WILL BE BETTER FOR ME". DENIES ANY NAUSEA.
[2019-03-12 16:29] VITALS: BP 135/98
--- NOTE | 2019-03-12 17:56 | NUR ---
PREFERS TO HAVE CLEAR LIQUID DINNER. DENIES ANY DISCOMFORT.
--- NOTE | 2019-03-12 19:34 | NUR ---
RECEIVED PT FROM DAY SHIFT RN. PT AAOX4. DENIES HEADACHE OR DIZZINESS. PT BREATHING EVEN AND UNLABORED ON RA, WITH NO SOB NOTED. TELE #17. PT DENIES CHEST PAIN OR PRESSURE. ABD SOFT/ROUND, ACTIVE BOWEL SOUNDS. DENIES ABD PAIN/N/V. PT AMBULATORY. IV LAC PATENT. NO SIGNS OF ACUTE DISTRESS NOTED. CALL BUTTON WITHIN REACH. SAFETY PRECAUTIONS IN PLACE. FAMILY AT BEDSIDE. WILL CONTINUE TO MONITOR.
[2019-03-12 20:17] VITALS: BP 145/104
[2019-03-12 21:30] VITALS: BP 133/93
--- NOTE | 2019-03-12 22:02 | NUR ---
PT REPORTED FEELING ANXIOUS. MEDICATED PER EMAR. CALL BUTTON WITIN REACH. SAFETY PRECAUTIONS IN PLACE. WILL MONITOR.
--- NOTE | 2019-03-12 23:29 | NUR ---
PT REPORTED HAVING BACK PAIN 03/26. MEDICATED PER EMAR. CALL BUTTON WITHIN REACH. SAFETY PRECAUTIONS IN PLACE. BARAK MONITOR.
--- NOTE | 2019-03-13 01:05 | NUR ---
PT RESTING. BREATHING EVEN AND UNLABORED. NO SIGNS OF DISTRESS NOTED. CALL BUTTON WITHIN REACH. SAFETY PRECAUTIONS IN PLACE. WILL MONITOR.
--- NOTE | 2019-03-13 02:51 | NUR ---
PT REPORTED FEELING ANXIOUS. MEDICATED PER EMAR. CALL BUTTON WITHIN REACH. WILL MONITOR.
--- NOTE | 2019-03-13 05:23 | NUR ---
PT SLEPT ON AND OFF THROUGHOUT THE NIGHT WITH NO SIGNS OF DISTRESS. PT REPORTED FEELING ANXIOUS THROUGHOUT THE NIGHT. MEDICATED PER EMAR WITH RELIEF. IV PATENT AND INFUSSING WELL. PT AMBULATORY WITH BRP. MEDICATED PER EMAR. NO SIGNS OF ACUTE DISTRESS. CALL BUTTON WITHIN REACH. SAFETY PRECAUTIONS IN PLACE. WILL CONTINUE TO MONITOR AND ENDORSE CARE TO DAY SHIFT RN.
[2019-03-13 05:50] VITALS: BP 140/68
--- NOTE | 2019-03-13 07:30 | NUR ---
PT IN NO SIGNS OF DISTRESS. ENDORSED CARE TO DAY SHIFT RN, ALL QUESTIONS ADDRESSED.
--- NOTE | 2019-03-13 07:49 | NUR ---
HANDOFF REPORT RECEIVED FROM GREY CONNELL. PATIENT ASLEEP AND NOT IN ANY DISTRESS. D5NS AT 100CC/HR INFUSING PERIPHERALLY. CALL ELLIS WITHIN REACH.
[2019-03-13 08:11] VITALS: BP 108/76
--- NOTE | 2019-03-13 08:52 | NUR ---
NOTED 4 EMPTY WATER CANNISTERS ON TABLE " I DRANK THEM ALL...I WANT TO STAY ON LIQUID..." INSTRUCTED TO SLOW DOWN ON FLUID INTAKE HE IS ALSO GETTING IVF AT 100CC/HR. MELISA NORWOOD MADE AWARE.
--- NOTE | 2019-03-13 10:38 | NUR ---
POSSIBLE DISCHARGE TODAY. PATIENT ASLEEP. CALL [facility] WITHIN REACH.
--- NOTE | 2019-03-13 10:40 | NUR ---
" I NEED ANXIETY MEDICATION" PT. STATED. ATIVAN GIVEN ORDERED.ENCOURABED INCREASE ACTIVITY TODAY.
[2019-03-13 13:09] VITALS: BP 137/89
--- NOTE | 2019-03-13 13:48 | NUR ---
VISITING. PATIENT CALM. DENIES ANY NAUSEA. " MY PAIN IS OK....2"
--- NOTE | 2019-03-13 14:13 | NUR ---
Initial Nutrition Assessment: Uziel Douglas 209T-A Dx: Pancreatitis PMHx: alcoholic pancreatitis, [place] in 2012 PSHx: None Labs: (03/12) B, Lipase:536H, Meds: Ativan, Colace, D51/2 NS, folic acid, Librium, [place], Theragran, Tylenol, Vitamin B-1, Zofran Diet: Full liquid PO Intake: (03/11) B+L: NPO D:100% of Clear liquid (03/12) B:100% L:100% (03/13) B:100% of full liquid Ht: 5'8" Wt: 210#,95.2kg BMI: 31.9kg/m2 (obese) Bed scale: 96kg IBW:154#,70kg %IBW: 136% UBW: 170-210# (fluctuates per pt) Age: 28 y/o male Food Allergies: NKFA Skin:intact Arya: 21 Edema: None GI:active bowel sounds Last BM: 03/12 Pt admitted with c/o 2 days of abdominal pain, which occured after eating and drinking a tall can. Per progress note 03/12, pt with less abdominal pain and tolerating diet. Plan is lipase in the am and continue IVF. Per RN note 03/13, pt prefers clear liquid and stated, "I think it will heal my problem". Per progress note 03/13, pt wants to keep full liquid diet. Plan is lipase in the AM, continue full liquid diet and discharge planning in the AM. During visit, pt was seen sitting up in bed with visitor at bedside. Pt states he has been tolerating liquid diet so far. Encouraged to advance diet since he is tolerating liquid diet, but pt states he feels more comfortable being on liquid diet. Per pt, labs will be taken tomorrow with possibilty of dischrge. Problem with: N/V/D/C: No Problems with: Chewing/ Swallowing:No Current appetite: Good Recent wt change:fluctuates %wt change:0-23% Vitamin/Supplement use:Niacin, Garlic extract, flax seed and MVI Special diet at home: varies. Tries to eat healty and then other times he will get a burrito from [employer]. 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 Nutrition education given (specify specific nutrition education and handout given):pt declined nutrition education on low fat diet due to being familiar with diet and being seen by RD from previous admission. Food-drug interactions? Antidepressive medications Education given? Verbal diet education on increased appetite with medications. Estimated Nutritional Needs Based on ideal body weight 70kg Energy: 1750-2100kcal/day (25-30kcal/kg for maintenance) Protein:70-84g/d (1.0-1.2g/kg for pancreatitis) Fluid: 1750-2100ml/d (1 ml/kcal for maintenance) or per doctor Nutrition Diagnosis 1. Altered nutrition related labs related to pancrearis dysfunction as evidenced by elevated lipase:536. Intervention 1. Recommned advance diet as tolerated to low fat. Monitor/Evaluate Goal: PO intake at least 75% of estimated needs Monitor: PO intake, Labs, GI function F/U in 3-5 days as moderate risk:03/16-03/18
--- NOTE | 2019-03-13 14:14 | NUR ---
1. Recommend continue to with Regular diet.
--- NOTE | 2019-03-13 15:54 | NUR ---
AMBULATING IN THE HALLWAY.
[2019-03-13 16:46] VITALS: BP 128/88
--- NOTE | 2019-03-13 19:04 | NUR ---
PT RECEIVED A/O X4, ABLE TO MAKE NEEDS KNOWN, SEIZURE PRECAUTIONS IN PLACE. FAMILY AT BEDSIDE. TELE #17, DENIES ANY CP/PRESSURE. PULSES PALPABLE, NO EDEMA PRESENT. BREATHING IS EVEN AND UNLABORED, NO RESP DISTRESS NOTED. ABD SOFT AND NONDISTENDED, BUTCH N/V. VOIDS FREELY, BRP. AMBULATORY WITH STEADY GAIT. SKIN IS WARM AND DRY, INTACT. PT DENIES HAVING ANY PAIN AT THIS TIME. IVF INFUSING WELL TO LAC, PATENT AND INTACT, SITE FREE FROM REDNESS OR SWELLING. NO ACUTE DISTRESS NOTED. BED IN LOWEST SETTING, SIDE RAILS UP X2, CALL LIGHT WITHIN REACH. WILL CONT TO MONITOR.
--- NOTE | 2019-03-13 19:16 | NUR ---
HANDOFF REPORT GIVEN TO GREY ASTORGA. PATIENT AWAKE CONVERSING WITH VISITORS ON ROUNDS. NOT IN ANY DISTRESS.
--- NOTE | 2019-03-13 20:22 | NUR ---
PT C/O 6 ABD AND BACK PAIN, PRN NORCO GIVEN ORDERED. NO ACUTE DISTRESS NOTED. WILL CONT TO MONITOR.
[2019-03-13 20:49] VITALS: BP 147/92
--- NOTE | 2019-03-14 01:05 | NUR ---
PT C/O 5.5/10 ABD AND BACK PAIN, PRN NORCO GIVE ORDERED. NO ACUTE DISTRESS NOTED. WILL CONT TO MONITOR.
--- NOTE | 2019-03-14 03:11 | NUR ---
PT C/O ANXIETY, PRN ATIVAN IVP GIVEN ORDERED. BREATHING IS EVEN AND UNLABORED, NO RESP DISTRESS NOTED. CALL LIGHT WITHIN REACH. WILL CONT TO MONITOR.
[2019-03-14 05:45] VITALS: BP 119/84
--- NOTE | 2019-03-14 06:13 | NUR ---
PT SLEPT AT INTERVALS THROUGHOUT THE EVENING. BREATHING IS EVEN AND UNLABORED, NO RESP DISTRESS NOTED. PT C/O 6/10 ABD AND BACK PAIN, PRN NORCO GIVEN ORDERED. NO ACUTE CHANGES ENCOUNTERED DURING SHIFT. ALL NEEDS MET AND ANTICIPATED. IVF INFUSING WELL TO LAC, SITE FREE FROM REDNESS OR SWELLING. CALL LIGHT WITHIN REACH. WILL ENDORSE CARE TO AM NURSE.
--- NOTE | 2019-03-14 07:02 | NUR ---
RECEIVED REPORT FROM GAURI EDMONDS. PATIENT RESTING IN BED WITH SEIZURE PRECAUTIONS IN PLACE. IV TO LAC IS PATENT AND INFUSING D5 NS @ 100 ML/HR. NO REDNESS O RPAIN. TELE # [address] PT DENIES CHEST PAIN. PT ON ROOM AIR. NO C/O SOB AND NO DISTRESS NOTED. PT REQUESTING ATIVAN WITH MORNINING MEDICATIONS. ALL QUESTIONS AND CONCERNS ADDRESSED.
[2019-03-14 09:36] VITALS: BP 137/96
[2019-03-14 11:16] VITALS: BP 137/96
--- NOTE | 2019-03-14 11:58 | NUR ---
PATIENT STABLE FOR DISCHARGE PER ACCOUNT EXECUTIVE [employer] [facility]. DISCHARGE INSTRUCTIONS AND SUMMARY DISCUSSED WITH PATIENT. PT VERBALIZED UNDERSTANDING AND AGREES TO FOLLOW UP WITH PCP. IV REMOVED AND IV POLE CLEARED. TEL # 17 REMOVED. MONITOR NOTIFIED. ID BANDS CUT. PT ESCORTED TO LOBBY.
== END 2019-03-14 11:50 | disposition home or self-care (01) | DRG 282 ==
LOC: ED 04:49 → DU 10:10 → MU 10:10 → DU 18:21
PROVIDERS: Specialist; ADMIT General Practice
DX: K85.20 Alcohol induced acute pancreatitis without necrosis or infection (principal); E78.00 Pure hypercholesterolemia, unspecified; F10.20 Alcohol dependence, uncomplicated; I10 Essential (primary) hypertension; Y90.0 Blood alcohol level of less than 20 mg/100 ml; J45.909 Unspecified asthma, uncomplicated; F41.9 Anxiety disorder, unspecified; F32.9 Major depressive disorder, single episode, unspecified; I25.2 Old myocardial infarction; Z88.8 Allergy status to other drugs, medicaments and biological substances; Z87.11 Personal history of peptic ulcer disease; Z83.3 Family history of diabetes mellitus; Z83.2 Family history of diseases of the blood and blood-forming organs and certain disorders involving the immune mechanism; Z87.891 Personal history of nicotine dependence
CPT/HCPCS: 82962; G0378; G0480; J1885; J2060; J2405; J3010; J3490; J7030; J7042; Q0092; Q0162

== ENCOUNTER 2019-04-22 02:02 | Emergency (ER) | payer OTHER ==
[~2019-04-22] VITALS: Ht 180.3 cm; Wt 95.7 kg
[2019-04-22 04:03] LABS: BASOPHIL % 0.2 % (0-2); PLATELET COUNT 276 x10^3mcL (130-400); RED CELL DISTRIBUTION WIDTH 13.1 % (11.5-14.5)
[2019-04-22 04:26] LABS: CALCIUM 8.3 mg/dL (8.5-10.1); CARBON DIOXIDE 22.4 mmol/L (21-32); CHLORIDE SERUM 107 mmol/L (98-107); CREATININE SERUM 1.1 mg/dL (0.7-1.3); GFR1 > 60 mL/min; GLUCOSE SERUM 129 mg/dL (74-106); SODIUM SERUM 140 mmol/L (136-145)
[2019-04-22 04:31] LABS: ALBUMIN 3.8 g/dL (3.4-5.0); ALKALINE PHOSPHATASE 112 U/L (46-116); ALT/SGPT 73 U/L (16-63); AST/SGOT 28 U/L (15-37); BILIRUBIN TOTAL 0.6 mg/dL (0.20-1.00); LIPASE 743 IU/L (73-393); TOTAL PROTEIN, SERUM 7.7 g/dL (6.4-8.2)
[2019-04-22 05:10] LABS: microscopic required? YES; urine erythrocyte 1+ (NEGATIVE)
[2019-04-22 06:30] VITALS: BP 160/107
== END 2019-04-22 07:19 | disposition home or self-care (01) ==
LOC: ED 02:02
PROVIDERS: Emergency Medicine
DX: K85.20 Alcohol induced acute pancreatitis without necrosis or infection (principal); J45.909 Unspecified asthma, uncomplicated; I10 Essential (primary) hypertension; F41.9 Anxiety disorder, unspecified; I25.2 Old myocardial infarction; Z88.8 Allergy status to other drugs, medicaments and biological substances
CPT/HCPCS: J2405; J3010; J3490; J7030

== ENCOUNTER 2020-05-09 14:30 | Emergency (ER) | payer OTHER ==
[~2020-05-09] VITALS: Ht 180.3 cm; Wt 92.1 kg
[2020-05-09 14:40] VITALS: Ht 180.3 cm; Wt 92.1 kg
[2020-05-09 16:15] VITALS: BP 141/108
== END 2020-05-09 16:15 | disposition home or self-care (01) ==
LOC: ED 14:30
DX: M77.9 Enthesopathy, unspecified (principal); J45.909 Unspecified asthma, uncomplicated; I10 Essential (primary) hypertension; E78.00 Pure hypercholesterolemia, unspecified; Z88.8 Allergy status to other drugs, medicaments and biological substances
CPT/HCPCS: J1885

== ENCOUNTER 2020-08-09 17:57 | Emergency (ER) | payer OTHER ==
[~2020-08-09] VITALS: Ht 396.2 cm; Wt 91.2 kg
[2020-08-09 18:17] VITALS: BP 131/85; Ht 396.2 cm; Wt 91.2 kg
== END 2020-08-09 21:04 | disposition home or self-care (01) ==
LOC: ED 17:57
DX: S61.012A Laceration without foreign body of left thumb without damage to nail, initial encounter (principal); W45.8XXA Other foreign body or object entering through skin, initial encounter; Y93.89 Activity, other specified; Y92.89 Other specified places as the place of occurrence of the external cause; Y99.8 Other external cause status